=== PATIENT | female | born 1955 | race Caucasian/White ===

== ENCOUNTER 2016-10-23 14:46 | Emergency (ER) | payer OTHER ==
[~2016-10-23] VITALS: Ht 165.1 cm; Wt 70.0 kg
[2016-10-23 14:57] VITALS: BP 107/57; PULSE 77; RESP 16; TEMP 98.6; O2SAT 97
[2016-10-23] MEDS ORDERED: VENTAER INH (15:19)
[2016-10-23] MEDS ORDERED: ROSU10 PO (15:19)
[2016-10-23] MEDS ORDERED: ADVA100A INH (15:19)
[2016-10-23] MEDS ORDERED: ORPH100T99 PO ×2 (15:40→15:49)
--- NOTE | 2016-10-23 15:44 | PD ---
HPI Chief Complaint: Back/ Neck Pain or Injury Time Seen by Provider: 15:32 Travel History International Travel<30 days: No Contact w/Intl Traveler<30days: No Traveled to known affect area: No History of Present Illness HPI This patient complains of right sided neck discomfort. She was doing her [employer] work at the [employer] 11 hours ago when she bent over patient and turned her head toward the right. She developed right sided muscular neck pain. No fall or injury. No direct trauma. No midline pain. No neurologic complaint. Symptoms severity is mild to moderate PFSH Past Medical History Hx Anticoagulant Therapy: No Asthma: Yes Cardiovascular Problems: Yes (CHOL) High Cholesterol: Yes Diabetes: No Respiratory: Yes (ASTHMA) Tetanus Vaccination: > 5 Years Influenza Vaccination: Yes ?: Not Menopausal: Yes Past Surgical History Abdominal Surgery: Yes (Hernia repair) Other Surgery: Yes (Rt. nephrectomy, Colles FX) Social History Alcohol Use: No Tobacco Use: Yes (1 PPD) Substance Use: No Allergies-Medications (Allergen,Severity, Reaction): Coded Allergies: No Known Allergies (Unverified , 10/23/16) Reported Meds & Prescriptions Reported Meds & Active Scripts Active Orphenadrine CR (Orphenadrine Citrate) 100 Mg Tab 100 Mg PO Q12HR Reported Crestor (Rosuvastatin Calcium) 10 Mg Tab 10 Mg PO DAILY Advair Diskus Inh (Fluticasone-Salmeterol Inh) 100-50 Mcg/Blist Aer 1 Puff INH BID Rinse mouth after use. Ventolin Hfa 18 GM Inh (Albuterol Sulfate) 90 Mcg/Act Aer 2 Puff INH Q4-6H PRN Review of Systems General / Constitutional: No: Fever HENT: No: Headaches Cardiovascular: No: Chest Pain or Discomfort Physical Exam Narrative NEUROLOGICAL: Awake and alert. Pupils are equal round and reactive. Motor and sensory grossly within normal limits. Five out of 5 muscle strength in all muscle groups. Normal speech. SKIN: Focused skin assessment reveals no rash or ulcers. Skin is warm and dry. Palpation shows no induration or nodules. NECK: Symmetrical appearance, midline trachea. No mass or crepitus. Thyroid without enlargement, tenderness, or mass. No midline tenderness. There is right sided muscular tenderness that reproduces her complaint Data Data Last Documented VS Vital Signs Date Time Temp Pulse Resp B/P Pulse Ox O2 Delivery O2 Flow Rate FiO2 10/23/16 14:57 98.6 77 16 107/57 97 Orders Apply Cervical Collar (10/23/16 15:38) MDM Medical Decision Making Medical Screen Exam Complete: Yes Emergency Medical Condition: Yes Medical Record Reviewed: Yes Differential Diagnosis Cervical strain, cervical fracture, contusion Narrative Course I have reviewed the patient's electronic medical record. Presentation is most consistent with acute right sided muscular strain No indication for x-rays She is neurologically intact Gradual resolution is expected I placed her in a cervical soft collar for her comfort Norflex prescribed for one week to use as needed; she should follow-up with Worker's Comp. M.D. if needed Diagnosis Primary Impression: Cervical strain, acute Qualified Code: S16.1XXA - Cervical strain, acute, initial encounter Additional Instructions: The patient was advised to follow up with their physician and return if they worsen. The patient was warned about potential sedation for the medications they will receive on prescription. Med/Other Pt SpecificInfo: Prescription(s) given Scripts Orphenadrine ER 12 HR (Orphenadrine CR)100 Mg Chu652 Mg PO Q12HR #14 TAB Ref 0 Prov:Juan Baum MD 10/23/16 Disposition: 01 DISCHARGE HOME Condition: Stable Juan Baum MD Oct 23, 2016 15:43
== END 2016-10-23 15:50 | disposition home or self-care (01) ==
LOC: PHED 14:46
DX: S16.1XXA Strain of muscle, fascia and tendon at neck level, initial encounter (principal); E78.00 Pure hypercholesterolemia, unspecified; J45.909 Unspecified asthma, uncomplicated; F17.210 Nicotine dependence, cigarettes, uncomplicated; T73.3XXA Exhaustion due to excessive exertion, initial encounter; Y92.129 Unspecified place in nursing home as the place of occurrence of the external cause; Y99.0 Civilian activity done for income or pay
CPT/HCPCS: 99283